=== PATIENT | female | born 1995 | race Caucasian/White ===

== ENCOUNTER 2023-12-16 14:11 | Emergency (ER) | payer SELFPAY | END 2023-12-16 15:33 | disposition home or self-care (01) | LOC: JD.ED 14:11 | DX: S20.212A Contusion of left front wall of thorax, initial encounter (principal); W01.0XXA Fall on same level from slipping, tripping and stumbling without subsequent striking against object, initial encounter | CPT/HCPCS: 71101-26-LT; 71101-LT; 99284 ==